=== PATIENT | male | born 1975 | race Caucasian/White ===

== ENCOUNTER 2021-02-18 12:21 | Inpatient (IN) | payer OTHER ==
[~2021-02-18] VITALS: Ht 182.9 cm; Wt 173.6 kg
[2021-02-18] MEDS ORDERED: BENAZEPRIL HCL10 MG PO (12:34)
[2021-02-18 18:27] LABS: Influenza A, PCR NEGATIVE (NEGATIVE); Influenza B, PCR NEGATIVE (NEGATIVE); Resp Syncytial Virus, PCR NEGATIVE (NEGATIVE); SARS-Cov-2 (COVID-19) PCR, MMC NEGATIVE (NEGATIVE)
--- NOTE | 2021-02-18 23:12 | NUR ---
SUMMARY PT REQUESTING IV PAIN MEDS MORE FREQUENTLY THAN Q6 HR.I CALLED DR RAYGOZA AND RECEIVED ORDERS .
[2021-02-19 05:24] LABS: BASOPHILS ABSOLUTE AUTO 0.03 K/mm3 (0.00-0.23); BASOPHILS PERCENT AUTO 0 % (0-2); EOSINOPHILS ABSOLUTE AUTO 0.03 K/mm3 (0.00-0.68); EOSINOPHILS PERCENT AUTO 0 % (0-6); Hematocrit 43.9 % (37.0-53.0); IMMATURE GRAN ABSOLUTE AUTO 0.09 K/mm3 (0.00-0.10); IMMATURE GRAN PERCENT AUTO 1 % (0-1); LYMPHOCYTES ABSOLUTE AUTO 0.96 K/mm3 (0.84-5.20); LYMPHOCYTES PERCENT AUTO 6 % (21-46); MONOCYTES ABSOLUTE AUTO 1.71 K/mm3 (0.16-1.47); MONOCYTES PERCENT AUTO 10 % (4-13); Mean Corpuscular HGB 30.5 pg (26.0-34.0); Mean Corpuscular HGB Conc 34.2 g/dL (31.5-36.5); Mean Corpuscular Volume 89 fL (80-100); Mean Platelet Volume 10.8 fL (9.1-12.4); NEUTROPHILS ABSOLUTE AUTO 13.95 K/mm3 (1.96-9.15); NEUTROPHILS PERCENT AUTO 83 % (41-73); Platelet Count 251 K/mm3 (150-400); RDW Standard Deviation 42.5 fL (35.1-46.3); Red Blood Cell Count 4.92 M/mm3 (4.30-5.90); White Blood Cell Count 16.77 K/mm3 (4.00-11.30)
[2021-02-19 06:05] LABS: Alanine Aminotransfer (ALT/SGP 42 U/L (12-78); Albumin, Blood 3.1 g/dL (3.4-5.0); Albumin/Globulin Ratio 0.8 (0.8-1.8); Alk Phos 58 U/L (50-136); Anion Gap 7 mmol/L (6-16); Aspartate Aminotrans (AST/SGOT 18 U/L (12-37); Blood Urea Nitrogen 12 mg/dL (8-24); Bun/Creatinine Ratio 11.5 (12.0-20.0); CO2, Blood 25 mmol/L (21-32); Calcium, Blood 8.7 mg/dL (8.5-10.1); Chloride, Blood 105 mmol/L (98-108); Creatinine, Blood 1.04 mg/dL (0.60-1.20); Globulin, Blood 3.9 g/dL (2.2-4.0); Glomerular Filtration Rate >60 (60-); Glucose, Blood 138 mg/dL (70-99); Potassium, Blood 3.8 mmol/L (3.5-5.5); Sodium, Blood 137 mmol/L (136-145)
--- NOTE | 2021-02-19 07:27 | NUR ---
SUMMARY PT REPORTS PAIN MEDS ARE PROVIDING ADEQUATE PAIN CONTROL.REMAINS NPO. BP TAKEN WITH LARGE APPROPRIATE CUFF ANAD RESULTS ON CHART. MUCH IMPROVED.
--- NOTE | 2021-02-19 12:33 | NUR ---
PT TO SURGERY AT THIS TIME
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
--- NOTE | 2021-02-19 16:39 | NUR ---
1555 TO PACU ASLEEP. SNORING, CHIN LIFT DONE. O2 AT 2 LN/C PLACED. PT DIAPHORETIC. DR RODRÍGUEZ REPORTS THIS WAS CONSISTENT DURING SURGERY. 5 SM GIAI STIPS D&I ON ABDOMEN.
--- NOTE | 2021-02-19 17:00 | NUR ---
5665 PATIENT SLOWLY WAKING, ENCOURAGING DEEP BREATHING.STERI STRIPS CONTINUE D&I KIRILL PO ICE CHIPS.
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
--- NOTE | 2021-02-19 18:18 | NUR ---
SUMMARY: NO ACUTE CHANGE SINCE POST OP. VSS, PT CONTINUES TO DENY PAIN. PT UP TO BATHROOM X1 WITH SBA AND VOIDED, URINE APPEARS CREDIT ANALYST IN COLOR. ABX INFUSED. INSTRUCTED ON I.S. USE AND ABLE TO WEAN TO RA. NO CONCERNS AT THIS TIME, WILL REPORT TO NOC RN.
--- NOTE | 2021-02-20 04:50 | NUR ---
SHIFT SUMMARY PT IS A/O X4, IND IN ROOM. S/P LAP DEVI POD#1. TOLERATING PO INTAKE PER DIET AND VOIDING. REPORTS MILD DISCOMFORT WHEN AMBULATING AND HAS BEEN MED PRN PER ORDER WITH [facility]CO. PT USING HOME CPAP AT [facility] WITH BIOX ON AT BEDISDE. STERI STRIPS X5 TO ABD CDI OVERNIGHT. NO ACUTE CHANGES OVERNIGHT. PT RESTING IN BED, CALL LIGHT IN REACH.
[2021-02-20 04:54] LABS: BASOPHILS ABSOLUTE AUTO 0.03 K/mm3 (0.00-0.23); BASOPHILS PERCENT AUTO 0 % (0-2); EOSINOPHILS ABSOLUTE AUTO 0.02 K/mm3 (0.00-0.68); EOSINOPHILS PERCENT AUTO 0 % (0-6); Hematocrit 37.4 % (37.0-53.0); Hemoglobin 12.4 g/dL (13.5-17.5); IMMATURE GRAN ABSOLUTE AUTO 0.07 K/mm3 (0.00-0.10); IMMATURE GRAN PERCENT AUTO 1 % (0-1); LYMPHOCYTES ABSOLUTE AUTO 1.09 K/mm3 (0.84-5.20); LYMPHOCYTES PERCENT AUTO 8 % (21-46); MONOCYTES ABSOLUTE AUTO 1.27 K/mm3 (0.16-1.47); MONOCYTES PERCENT AUTO 10 % (4-13); Mean Corpuscular HGB 29.8 pg (26.0-34.0); Mean Corpuscular HGB Conc 33.2 g/dL (31.5-36.5); Mean Corpuscular Volume 90 fL (80-100); Mean Platelet Volume 10.8 fL (9.1-12.4); NEUTROPHILS ABSOLUTE AUTO 10.67 K/mm3 (1.96-9.15); NEUTROPHILS PERCENT AUTO 81 % (41-73); Platelet Count 227 K/mm3 (150-400); RDW Coefficient Variation 13.1 % (11.7-14.2); RDW Standard Deviation 42.9 fL (35.1-46.3); Red Blood Cell Count 4.16 M/mm3 (4.30-5.90); White Blood Cell Count 13.15 K/mm3 (4.00-11.30)
[2021-02-20 05:19] LABS: Albumin, Blood 2.6 g/dL (3.4-5.0); Albumin/Globulin Ratio 0.7 (0.8-1.8); Bilirubin, Total 1.5 mg/dL (0.1-1.0); Bun/Creatinine Ratio 12.9 (12.0-20.0); Calcium, Blood 8.4 mg/dL (8.5-10.1); Creatinine, Blood 1.4 mg/dL (0.60-1.20); Globulin, Blood 3.9 g/dL (2.2-4.0); Total Protein, Blood 6.5 g/dL (6.4-8.2)
[2021-02-20] MEDS ORDERED: Norco 7.5-3251 EACH PO (12:13)
--- NOTE | 2021-02-20 12:46 | NUR ---
DISCHARGE SUMMARY PT A&OX4, VSS, LEFT FLOOR WITH , WITH ALL PERSONAL POSSESSIONS TO GO HOME, WITH DC PACKET AND 1 WORK RELEASE SCRIPT AND 1 NARC SCRIPT. DC INSTRUCTIONS PROVIDED. PT REP UNDERSTANDING THOSE INSTRUCTIONS INCLUDING LEAVE STERIS IN PLACE, FU WITH SURGEON, OK TO SHOWER/NO [id number]. IV DC'D.
== END 2021-02-20 12:36 | disposition home or self-care (01) | DRG 418 ==
LOC: ER 12:21 → SURS 15:43
PROVIDERS: ADMIT Surgery
PROC: BF522Z0 Other Imaging of Gallbladder using Fluorescing Agent, Intraoperative (ICD-10-PCS; 2021-02-19)
PROC: 0FT44ZZ Resection of Gallbladder, Percutaneous Endoscopic Approach (ICD-10-PCS; principal; 2021-02-19 11:45)
DX: K80.00 Calculus of gallbladder with acute cholecystitis without obstruction (principal); Z68.43 Body mass index [BMI] 50.0-59.9, adult; I10 Essential (primary) hypertension; J44.9 Chronic obstructive pulmonary disease, unspecified; E66.01 Morbid (severe) obesity due to excess calories; Z20.822 Contact with and (suspected) exposure to COVID-19; G47.33 Obstructive sleep apnea (adult) (pediatric)
CPT/HCPCS: 0241U; 36415; 74300; 76705; 80053; 85025; 93005; 93010; 94762; 96374; 96375; 99285-25; A9270; C1729; J1100; J1170; J1885; J2250; J2270; J2405; J2543; J2704; J2710; J3010; J7120

== ENCOUNTER → 2021-02-18 | Outpatient (CLI) | payer OTHER ==
[~2021-02-18] MED LIST: BENAZEPRIL HCL10 MG PO; Norco 7.5-3251 EACH PO
[2021-02-18 11:21] LABS: BASOPHILS ABSOLUTE AUTO 0.04 K/mm3 (0.00-0.23); BASOPHILS PERCENT AUTO 0 % (0-2); EOSINOPHILS ABSOLUTE AUTO 0.01 K/mm3 (0.00-0.68); EOSINOPHILS PERCENT AUTO 0 % (0-6); Hematocrit 44.1 % (37.0-53.0); Hemoglobin 15.5 g/dL (13.5-17.5); IMMATURE GRAN ABSOLUTE AUTO 0.06 K/mm3 (0.00-0.10); IMMATURE GRAN PERCENT AUTO 0 % (0-1); LYMPHOCYTES ABSOLUTE AUTO 0.67 K/mm3 (0.84-5.20); LYMPHOCYTES PERCENT AUTO 5 % (21-46); MONOCYTES ABSOLUTE AUTO 0.68 K/mm3 (0.16-1.47); MONOCYTES PERCENT AUTO 5 % (4-13); Mean Corpuscular HGB 30.7 pg (26.0-34.0); Mean Corpuscular HGB Conc 35.1 g/dL (31.5-36.5); Mean Corpuscular Volume 87 fL (80-100); NEUTROPHILS ABSOLUTE AUTO 13.58 K/mm3 (1.96-9.15); NEUTROPHILS PERCENT AUTO 90 % (41-73); Platelet Count 285 K/mm3 (150-400); RDW Coefficient Variation 12.8 % (11.7-14.2); RDW Standard Deviation 39.9 fL (35.1-46.3); Red Blood Cell Count 5.05 M/mm3 (4.30-5.90); White Blood Cell Count 15.04 K/mm3 (4.00-11.30)
[2021-02-18 11:35] LABS: Alanine Aminotransfer (ALT/SGP 45 U/L (12-78); Albumin, Blood 3.8 g/dL (3.4-5.0); Alk Phos 67 U/L (40-126); Anion Gap 14 mmol/L (6-16); Aspartate Aminotrans (AST/SGOT 19 U/L (12-37); Bilirubin, Total 1.1 mg/dL (0.1-1.0); Blood Urea Nitrogen 16 mg/dL (8-24); Bun/Creatinine Ratio 13.6 (12.0-20.0); CO2, Blood 22 mmol/L (21-32); Calcium, Blood 9.1 mg/dL (8.5-10.1); Chloride, Blood 104 mmol/L (98-108); Creatinine, Blood 1.18 mg/dL (0.60-1.20); Globulin, Blood 3.8 g/dL (2.2-4.0); Glomerular Filtration Rate >60 (60-); Glucose, Blood 160 mg/dL (70-99); Sodium, Blood 140 mmol/L (136-145); Total Protein, Blood 7.6 g/dL (6.4-8.2)
[2021-02-18 11:42] LABS: Troponin I <0.017 ng/mL (0.000-0.040)
== END ==
LOC: LAB SHORT 11:08
PROVIDERS: Physician Assistant
DX: R10.11 Right upper quadrant pain (principal)
CPT/HCPCS: 80053; 83690; 84484; 85025

== ENCOUNTER → 2021-12-30 | Outpatient (CLI) | payer OTHER | END | disposition home or self-care (01) | LOC: LAB SHORT 11:18 → PLD 11:18 | DX: D36.15 Benign neoplasm of peripheral nerves and autonomic nervous system of abdomen (principal) | CPT/HCPCS: 88305 ==